=== PATIENT | male | born 1940 | race Caucasian/White ===

== ENCOUNTER 2020-07-25 11:17 | Inpatient (IN) ==
[2020-07-25] MEDS ORDERED: Ondansetron 4 MG/2 ML VIAL IVP PRN (15:19)
[2020-07-25] MEDS ORDERED: Naloxone 0.4 MG/ML INJ IVP PRN (15:19)
[2020-07-25] MEDS ORDERED: *HR* HYDROcodone/Acet 5/325 mg TABLET PO PRN (15:19)
[2020-07-25] MEDS ORDERED: MOMETASONE FUROATE APPL TP PRN (15:23)
[2020-07-25] MEDS ORDERED: Triamcinolone Acet 0.1% CRM 15 GM TUBE TP PRN (15:23)
[2020-07-25] MEDS ORDERED: Benzonatate 100 MG CAPSULE PO PRN (15:23)
[2020-07-25] MEDS: *HR* Rivaroxaban 10 MG TABLET PO SCH (17:34)
[2020-07-25] MEDS ORDERED: Nitroglycerin 0.4 MG TAB.SUBL SL PRN (18:16)
[2020-07-25] MEDS: polyethylene glycoL 3350 17 GM POWD.PACK PO PRN (22:36)
[2020-07-26] MEDS: Acetaminophen 325 MG TABLET PO PRN (03:07)
[2020-07-26 06:14] LABS: Hematocrit 39.6 % (37.5-50.1); Hemoglobin 13.9 g/dL (12.9-16.9); Mean Corpuscular HGB Conc 35.1 g/dL (31.6-35.5); Mean Corpuscular Hemoglobin 31.7 pg (28.0-33.3); Mean Corpuscular Volume 90.2 fL (83.0-100.0); Mean Platelet Volume 9.8 fL (9.4-12.4); Platelet Count 374 K/mcL (140-400); Red Blood Count 4.39 M/mcL (4.19-5.50); Red Cell Distribution Width 11.9 % (11.5-14.5); White Blood Count 8.7 K/mcL (4.3-11.1)
[2020-07-26 06:33] LABS: BUN/Creatinine Ratio 31 (6-26); Blood Urea Nitrogen 31 mg/dL (8-23); Calcium 8.6 mg/dL (8.6-10.3); Carbon Dioxide 22 mEq/L (23-29); Chloride 99 mEq/L (98-107); Glucose 102 mg/dL (70-105); Osmolality,Calculated 283 (280-300); Potassium 4.2 mEq/L (3.5-5.1); Sodium 133 mEq/L (136-145); eGFR For African Americans > 60 (> 60); eGFR For Non-African Americans > 60 (> 60)
[2020-07-26] MEDS: Ondansetron ODT 4 MG TAB.RAPDIS SL PRN (07:45)
[2020-07-26] MEDS: Isosorbide MONOnitrate (24 HR) 30 MG TAB.ER.24H PO SCH (07:45)
[2020-07-26] MEDS: Cholecalciferol (D-3) 1,000 UNIT (25MCG) TABLET PO SCH (07:45)
[2020-07-26] MEDS: Multivit/Ca/Min/Fe/FA 1 TAB TABLET PO SCH (07:46)
[2020-07-26] MEDS: polyethylene glycoL 3350 17 GM POWD.PACK PO PRN (07:46)
[2020-07-26] MEDS: Aspirin Enteric Coated 81 MG Tablet PO SCH (07:46)
[2020-07-26] MEDS: *HR* Rivaroxaban 10 MG TABLET PO SCH (15:22)
[2020-07-26] MEDS: *HR* LORazepam 0.5 MG TABLET PO PRN (16:38)
[2020-07-26] MEDS: Nystatin Cream 15 GM TUBE TP SCH ×2 (16:38→21:19)
[2020-07-27] MEDS: *HR* LORazepam 0.5 MG TABLET PO PRN (01:02)
[2020-07-27] MEDS: Acetaminophen 325 MG TABLET PO PRN (04:51)
[2020-07-27 06:31] LABS: Basophils # 0.1 K/mcL (0.0-0.2); Basophils % 0.7 %; Eosinophils # 0.1 K/mcL (0.0-0.6); Hematocrit 38.4 % (37.5-50.1); Hemoglobin 13.6 g/dL (12.9-16.9); Immature Granulocytes % 1.8 % (0-4); Lymphocytes # 0.9 K/mcL (0.6-4.6); Lymphocytes % 12.3 %; Mean Corpuscular HGB Conc 35.4 g/dL (31.6-35.5); Mean Corpuscular Volume 90.4 fL (83.0-100.0); Mean Platelet Volume 9.5 fL (9.4-12.4); Monocytes % 13.5 %; Neutrophils # 5.2 K/mcL (1.6-8.9); Platelet Count 322 K/mcL (140-400); Red Blood Count 4.25 M/mcL (4.19-5.50); Red Cell Distribution Width 12.1 % (11.5-14.5); Segmented Neutrophils % 70.7 %; White Blood Count 7.3 K/mcL (4.3-11.1)
[2020-07-27 06:49] LABS: BUN/Creatinine Ratio 24 (6-26); Blood Urea Nitrogen 21 mg/dL (8-23); Calcium 8.6 mg/dL (8.6-10.3); Carbon Dioxide 23 mEq/L (23-29); Chloride 99 mEq/L (98-107); Glucose 97 mg/dL (70-105); Osmolality,Calculated 275 (280-300); Potassium 4.6 mEq/L (3.5-5.1); Sodium 131 mEq/L (136-145); eGFR For African Americans > 60 (> 60); eGFR For Non-African Americans > 60 (> 60)
[2020-07-27] MEDS: Cholecalciferol (D-3) 1,000 UNIT (25MCG) TABLET PO SCH (07:46)
[2020-07-27] MEDS: Aspirin Enteric Coated 81 MG Tablet PO SCH (07:46)
[2020-07-27] MEDS: Isosorbide MONOnitrate (24 HR) 30 MG TAB.ER.24H PO SCH (07:46)
[2020-07-27] MEDS: Multivit/Ca/Min/Fe/FA 1 TAB TABLET PO SCH (07:46)
[2020-07-27] MEDS: Ondansetron ODT 4 MG TAB.RAPDIS SL PRN (07:47)
[2020-07-27] MEDS: Nystatin Cream 15 GM TUBE TP SCH (07:47)
[2020-07-27 14:47] VITALS: BP 109/64
== END 2020-07-27 16:07 | disposition other institution (70) | DRG 177 ==
LOC: INPPIK 15:42
PROVIDERS: ADMIT Family Medicine; ATTEND Family Medicine

== ENCOUNTER 2020-07-27 14:12 | Inpatient (IN) ==
[2020-07-27] MEDS ORDERED: MOMETASONE FUROATE TP PRN (14:41)
[2020-07-27] MEDS: *HR* Rivaroxaban 10 MG TABLET PO SCH (16:45)
[2020-07-28] MEDS: Acetaminophen 325 MG TABLET PO PRN ×3 (00:02→23:06)
[2020-07-28] MEDS ORDERED: Nitroglycerin 0.4 MG TAB.SUBL SL ONE (05:08)
[2020-07-28] MEDS: Nitroglycerin 0.4 MG TAB.SUBL SL PRN ×2 (05:09→14:19)
[2020-07-28] MEDS ORDERED: Nitroglycerin 0.4 MG TAB.SUBL SL PRN (08:52)
[2020-07-28] MEDS ORDERED: Isosorbide MONOnitrate (24 HR) 30 MG TAB.ER.24H PO SCH (09:00)
[2020-07-28] MEDS: Multivit/Ca/Min/Fe/FA 1 TAB TABLET PO SCH (09:06)
[2020-07-28] MEDS: Cholecalciferol (D-3) 1,000 UNIT (25MCG) TABLET PO SCH (09:07)
[2020-07-28] MEDS: Aspirin Enteric Coated 81 MG Tablet PO SCH (09:07)
[2020-07-28] MEDS: Nystatin Cream 15 GM TUBE TP SCH ×3 (14:09→20:25)
[2020-07-28] MEDS ORDERED: 0.9 % Sodium Chloride 250 ML IVC ONE (14:33)
[2020-07-28] MEDS ORDERED: GI Cocktail 40 ML EACH PO ONE (16:52)
[2020-07-28] MEDS: *HR* Rivaroxaban 10 MG TABLET PO SCH (18:09)
[2020-07-28] MEDS: polyethylene glycoL 3350 17 GM POWD.PACK PO PRN (23:07)
[2020-07-28] MEDS: Benzonatate 100 MG CAPSULE PO PRN (23:07)
[2020-07-29] MEDS: Cholecalciferol (D-3) 1,000 UNIT (25MCG) TABLET PO SCH (09:47)
[2020-07-29] MEDS: Isosorbide MONOnitrate (24 HR) 60 MG TAB.ER.24H PO SCH (09:47)
[2020-07-29] MEDS: Multivit/Ca/Min/Fe/FA 1 TAB TABLET PO SCH (09:47)
[2020-07-29] MEDS: Acetaminophen 325 MG TABLET PO PRN (09:47)
[2020-07-29] MEDS: Metoprolol XL (24 HR) Succ 25 MG TAB.ER.24H PO SCH (09:47)
[2020-07-29] MEDS: Aspirin Enteric Coated 81 MG Tablet PO SCH (09:47)
[2020-07-29] MEDS: Nystatin Cream 15 GM TUBE TP SCH ×3 (09:49→22:10)
[2020-07-29 10:06] LABS: Hematocrit 40.8 % (37.5-50.1); Hemoglobin 13.7 g/dL (12.9-16.9); Mean Corpuscular HGB Conc 33.6 g/dL (31.6-35.5); Mean Corpuscular Hemoglobin 30.9 pg (28.0-33.3); Mean Corpuscular Volume 92.1 fL (83.0-100.0); Mean Platelet Volume 9.9 fL (9.4-12.4); Platelet Count 268 K/mcL (140-400); Red Blood Count 4.43 M/mcL (4.19-5.50); Red Cell Distribution Width 12.1 % (11.5-14.5); White Blood Count 4.9 K/mcL (4.3-11.1)
[2020-07-29 10:30] LABS: BUN/Creatinine Ratio 20 (6-26); Blood Urea Nitrogen 15 mg/dL (8-23); Calcium 8.4 mg/dL (8.6-10.3); Carbon Dioxide 25 mEq/L (23-29); Chloride 100 mEq/L (98-107); Glucose 91 mg/dL (70-105); Osmolality,Calculated 280 (280-300); Potassium 4.2 mEq/L (3.5-5.1); Sodium 135 mEq/L (136-145); eGFR For African Americans > 60 (> 60); eGFR For Non-African Americans > 60 (> 60)
[2020-07-29] MEDS: *HR* Rivaroxaban 10 MG TABLET PO SCH (16:37)
[2020-07-30] MEDS: Nitroglycerin 0.4 MG TAB.SUBL SL PRN ×2 (09:11→09:35)
[2020-07-30] MEDS ORDERED: *HR* Metoprolol 5 MG/5 ML VIAL IVP ONE (09:31)
[2020-07-30] MEDS: *HR* LORazepam 0.5 MG TABLET PO PRN (09:32)
[2020-07-30] MEDS: Cholecalciferol (D-3) 1,000 UNIT (25MCG) TABLET PO SCH (10:17)
[2020-07-30] MEDS: Aspirin Enteric Coated 81 MG Tablet PO SCH (10:18)
[2020-07-30] MEDS: Metoprolol XL (24 HR) Succ 25 MG TAB.ER.24H PO SCH (10:18)
[2020-07-30] MEDS: Multivit/Ca/Min/Fe/FA 1 TAB TABLET PO SCH (10:18)
[2020-07-30] MEDS: Isosorbide MONOnitrate (24 HR) 60 MG TAB.ER.24H PO SCH (10:18)
[2020-07-30] MEDS: Nystatin Cream 15 GM TUBE TP SCH ×3 (10:20→21:39)
[2020-07-30] MEDS ORDERED: Metoprolol XL (24 HR) Succ 25 MG TAB.ER.24H PO ONE (10:25)
[2020-07-30] MEDS ORDERED: Metoprolol XL (24 HR) Succ 25 MG TAB.ER.24H PO SCH (10:30)
[2020-07-30] MEDS: *HR* Rivaroxaban 10 MG TABLET PO SCH (19:00)
[2020-07-30] MEDS: Acetaminophen 325 MG TABLET PO PRN (23:38)
[2020-07-31] MEDS: Metoprolol XL (24 HR) Succ 50 MG TAB.ER.24H PO SCH (10:02)
[2020-07-31] MEDS: Isosorbide MONOnitrate (24 HR) 60 MG TAB.ER.24H PO SCH (10:02)
[2020-07-31] MEDS: Multivit/Ca/Min/Fe/FA 1 TAB TABLET PO SCH (10:02)
[2020-07-31] MEDS: Aspirin Enteric Coated 81 MG Tablet PO SCH (10:02)
[2020-07-31] MEDS: Cholecalciferol (D-3) 1,000 UNIT (25MCG) TABLET PO SCH (10:02)
[2020-07-31] MEDS: Nystatin Cream 15 GM TUBE TP SCH ×3 (10:04→20:07)
[2020-07-31] MEDS: *HR* Rivaroxaban 10 MG TABLET PO SCH (18:09)
[2020-08-01] MEDS: Ondansetron ODT 4 MG TAB.RAPDIS SL PRN (06:59)
[2020-08-01] MEDS: Nystatin Cream 15 GM TUBE TP SCH ×3 (08:00→21:07)
[2020-08-01] MEDS: Cholecalciferol (D-3) 1,000 UNIT (25MCG) TABLET PO SCH (08:41)
[2020-08-01] MEDS: Multivit/Ca/Min/Fe/FA 1 TAB TABLET PO SCH (08:41)
[2020-08-01] MEDS: Isosorbide MONOnitrate (24 HR) 60 MG TAB.ER.24H PO SCH (08:41)
[2020-08-01] MEDS: Aspirin Enteric Coated 81 MG Tablet PO SCH (08:41)
[2020-08-01] MEDS: Metoprolol XL (24 HR) Succ 50 MG TAB.ER.24H PO SCH (08:41)
[2020-08-01] MEDS: *HR* Rivaroxaban 10 MG TABLET PO SCH (16:42)
[2020-08-02] MEDS: Benzonatate 100 MG CAPSULE PO PRN ×2 (02:59→23:17)
[2020-08-02] MEDS: Acetaminophen 325 MG TABLET PO PRN (05:33)
[2020-08-02] MEDS: Ondansetron ODT 4 MG TAB.RAPDIS SL PRN (05:36)
[2020-08-02] MEDS: Multivit/Ca/Min/Fe/FA 1 TAB TABLET PO SCH (08:26)
[2020-08-02] MEDS: Cholecalciferol (D-3) 1,000 UNIT (25MCG) TABLET PO SCH (08:26)
[2020-08-02] MEDS: Isosorbide MONOnitrate (24 HR) 60 MG TAB.ER.24H PO SCH (08:26)
[2020-08-02] MEDS: Metoprolol XL (24 HR) Succ 50 MG TAB.ER.24H PO SCH (08:26)
[2020-08-02] MEDS: Aspirin Enteric Coated 81 MG Tablet PO SCH (08:26)
[2020-08-02] MEDS: Nystatin Cream 15 GM TUBE TP SCH ×3 (08:27→21:19)
[2020-08-02] MEDS: *HR* Rivaroxaban 10 MG TABLET PO SCH (17:05)
[2020-08-03] MEDS: polyethylene glycoL 3350 17 GM POWD.PACK PO PRN (09:11)
[2020-08-03] MEDS: Ondansetron ODT 4 MG TAB.RAPDIS SL PRN (09:11)
[2020-08-03] MEDS: Aspirin Enteric Coated 81 MG Tablet PO SCH (09:12)
[2020-08-03] MEDS: Multivit/Ca/Min/Fe/FA 1 TAB TABLET PO SCH (09:12)
[2020-08-03] MEDS: Isosorbide MONOnitrate (24 HR) 60 MG TAB.ER.24H PO SCH (09:12)
[2020-08-03] MEDS: Cholecalciferol (D-3) 1,000 UNIT (25MCG) TABLET PO SCH (09:12)
[2020-08-03] MEDS: Nystatin Cream 15 GM TUBE TP SCH ×3 (09:13→19:50)
[2020-08-03] MEDS: Metoprolol XL (24 HR) Succ 50 MG TAB.ER.24H PO SCH (09:13)
[2020-08-03] MEDS: *HR* Rivaroxaban 10 MG TABLET PO SCH (16:19)
[2020-08-03] MEDS ORDERED: Bisacodyl 10 MG RECTAL SUPPOSITORY RC PRN (17:21)
[2020-08-03] MEDS: Benzonatate 100 MG CAPSULE PO PRN (23:42)
[2020-08-04] MEDS: Ondansetron ODT 4 MG TAB.RAPDIS SL PRN (05:08)
[2020-08-04] MEDS: Multivit/Ca/Min/Fe/FA 1 TAB TABLET PO SCH (07:54)
[2020-08-04] MEDS: Cholecalciferol (D-3) 1,000 UNIT (25MCG) TABLET PO SCH (07:54)
[2020-08-04] MEDS: Aspirin Enteric Coated 81 MG Tablet PO SCH (07:55)
[2020-08-04] MEDS: Nystatin Cream 15 GM TUBE TP SCH ×3 (07:55→20:16)
[2020-08-04] MEDS: Isosorbide MONOnitrate (24 HR) 60 MG TAB.ER.24H PO SCH (07:55)
[2020-08-04] MEDS: Metoprolol XL (24 HR) Succ 50 MG TAB.ER.24H PO SCH (07:55)
[2020-08-04] MEDS: *HR* Rivaroxaban 10 MG TABLET PO SCH (16:30)
[2020-08-04] MEDS: Benzonatate 100 MG CAPSULE PO PRN (22:50)
[2020-08-05 06:58] VITALS: BP 132/73
[2020-08-05] MEDS: Isosorbide MONOnitrate (24 HR) 60 MG TAB.ER.24H PO SCH (08:23)
[2020-08-05] MEDS: Aspirin Enteric Coated 81 MG Tablet PO SCH (08:23)
[2020-08-05] MEDS: Metoprolol XL (24 HR) Succ 50 MG TAB.ER.24H PO SCH (08:24)
[2020-08-05] MEDS: Multivit/Ca/Min/Fe/FA 1 TAB TABLET PO SCH (08:24)
[2020-08-05] MEDS: Cholecalciferol (D-3) 1,000 UNIT (25MCG) TABLET PO SCH (08:24)
[2020-08-05] MEDS: Nystatin Cream 15 GM TUBE TP SCH ×2 (08:25→15:52)
[2020-08-05] MEDS: *HR* LORazepam 0.5 MG TABLET PO PRN (10:11)
[2020-08-05] MEDS: Ondansetron ODT 4 MG TAB.RAPDIS SL PRN (10:12)
[2020-08-05] MEDS: polyethylene glycoL 3350 17 GM POWD.PACK PO PRN (10:12)
[2020-08-05] MEDS: Benzonatate 100 MG CAPSULE PO PRN (10:12)
[2020-08-05] MEDS: *HR* Rivaroxaban 10 MG TABLET PO SCH (15:53)
== END 2020-08-05 16:30 | disposition home health service (06) | DRG 946 ==
LOC: INPPIK 16:05
PROVIDERS: ADMIT Family Medicine; ATTEND Family Medicine

== ENCOUNTER 2020-11-22 12:34 | Inpatient (IN) ==
[2020-11-22] MEDS ORDERED: Nitroglycerin 0.4 MG TAB.SUBL SL PRN (21:35)
[2020-11-22] MEDS: Melatonin 3 MG TABLET PO PRN (22:55)
[2020-11-22] MEDS ORDERED: Ibuprofen 600 MG TABLET PO PRN (23:02)
[2020-11-23 07:14] LABS: Basophils % 0.6 %; Eosinophils # 0.3 K/mcL (0.0-0.6); Eosinophils % 5.6 %; Hematocrit 25.5 % (37.5-50.1); Hemoglobin 8.3 g/dL (12.9-16.9); Immature Granulocytes % 1.6 % (0-4); Lymphocytes # 1.1 K/mcL (0.6-4.6); Lymphocytes % 20.9 %; Mean Corpuscular HGB Conc 32.5 g/dL (31.6-35.5); Mean Corpuscular Hemoglobin 29.6 pg (28.0-33.3); Mean Corpuscular Volume 91.1 fL (83.0-100.0); Mean Platelet Volume 10.1 fL (9.4-12.4); Monocytes # 0.7 K/mcL (0.0-1.3); Monocytes % 13.5 %; Neutrophils # 2.9 K/mcL (1.6-8.9); Platelet Count 276 K/mcL (140-400); Red Cell Distribution Width 13.5 % (11.5-14.5); Segmented Neutrophils % 57.8 %
[2020-11-23 07:33] LABS: BUN/Creatinine Ratio 20 (6-26); Blood Urea Nitrogen 21 mg/dL (8-23); Calcium 8.5 mg/dL (8.6-10.3); Carbon Dioxide 26 mEq/L (23-29); Chloride 101 mEq/L (98-107); Glucose 118 mg/dL (70-105); Osmolality,Calculated 284 (280-300); Sodium 135 mEq/L (136-145); eGFR For African Americans > 60 (> 60); eGFR For Non-African Americans > 60 (> 60)
[2020-11-23] MEDS: Metoprolol XL (24 HR) Succ 50 MG TAB.ER.24H PO SCH (09:17)
[2020-11-23] MEDS: Cholecalciferol (D-3) 1,000 UNIT (25MCG) TABLET PO SCH (09:17)
[2020-11-23] MEDS: Isosorbide MONOnitrate (24 HR) 30 MG TAB.ER.24H PO SCH (09:17)
[2020-11-23] MEDS: *HR* Amiodarone 200 MG TABLET PO SCH (09:17)
[2020-11-23] MEDS: Aspirin Enteric Coated 81 MG Tablet PO SCH (09:17)
[2020-11-23] MEDS: polyethylene glycoL 3350 17 GM POWD.PACK PO PRN (09:23)
[2020-11-23] MEDS: *HR* Rivaroxaban 10 MG TABLET PO SCH (16:50)
[2020-11-23] MEDS: Melatonin 3 MG TABLET PO PRN (20:27)
[2020-11-23] MEDS: ALPRAZolam 0.5 MG TABLET PO PRN (23:01)
[2020-11-24] MEDS: Metoprolol XL (24 HR) Succ 50 MG TAB.ER.24H PO SCH (08:17)
[2020-11-24] MEDS: *HR* Amiodarone 200 MG TABLET PO SCH (08:17)
[2020-11-24] MEDS: Aspirin Enteric Coated 81 MG Tablet PO SCH (08:17)
[2020-11-24] MEDS: Cholecalciferol (D-3) 1,000 UNIT (25MCG) TABLET PO SCH (08:17)
[2020-11-24] MEDS: Isosorbide MONOnitrate (24 HR) 30 MG TAB.ER.24H PO SCH (08:17)
[2020-11-24] MEDS: *HR* Rivaroxaban 10 MG TABLET PO SCH (16:23)
[2020-11-24] MEDS: Melatonin 3 MG TABLET PO PRN (20:24)
[2020-11-24] MEDS: ALPRAZolam 0.5 MG TABLET PO PRN (22:28)
[2020-11-25] MEDS: Cholecalciferol (D-3) 1,000 UNIT (25MCG) TABLET PO SCH (08:36)
[2020-11-25] MEDS: Aspirin Enteric Coated 81 MG Tablet PO SCH (08:36)
[2020-11-25] MEDS: Metoprolol XL (24 HR) Succ 50 MG TAB.ER.24H PO SCH (08:36)
[2020-11-25] MEDS: *HR* Amiodarone 200 MG TABLET PO SCH (08:36)
[2020-11-25] MEDS: Isosorbide MONOnitrate (24 HR) 30 MG TAB.ER.24H PO SCH (08:36)
[2020-11-25] MEDS: *HR* Rivaroxaban 10 MG TABLET PO SCH (17:05)
[2020-11-25] MEDS: ALPRAZolam 0.5 MG TABLET PO PRN (22:05)
[2020-11-25] MEDS: Melatonin 3 MG TABLET PO PRN (22:06)
[2020-11-26] MEDS: Isosorbide MONOnitrate (24 HR) 30 MG TAB.ER.24H PO SCH (07:31)
[2020-11-26] MEDS: Metoprolol XL (24 HR) Succ 50 MG TAB.ER.24H PO SCH (07:31)
[2020-11-26] MEDS: Aspirin Enteric Coated 81 MG Tablet PO SCH (07:31)
[2020-11-26] MEDS: Cholecalciferol (D-3) 1,000 UNIT (25MCG) TABLET PO SCH (07:31)
[2020-11-26] MEDS: *HR* Amiodarone 200 MG TABLET PO SCH (07:31)
[2020-11-26] MEDS ORDERED: Docusate Oral Soln 100 MG/10 ML UDC PO PRN (16:15)
[2020-11-26] MEDS: *HR* Rivaroxaban 10 MG TABLET PO SCH (17:03)
[2020-11-26] MEDS: Melatonin 3 MG TABLET PO PRN (21:57)
[2020-11-26] MEDS: ALPRAZolam 0.5 MG TABLET PO PRN (21:57)
[2020-11-27] MEDS ORDERED: Nitroglycerin 0.2 MG PATCH.TD24 TD SCH (07:30)
[2020-11-27] MEDS: Cholecalciferol (D-3) 1,000 UNIT (25MCG) TABLET PO SCH (08:43)
[2020-11-27] MEDS: Aspirin Enteric Coated 81 MG Tablet PO SCH (08:43)
[2020-11-27] MEDS: *HR* Amiodarone 200 MG TABLET PO SCH (08:43)
[2020-11-27 08:57] LABS: Hematocrit 34.1 % (37.5-50.1); Hemoglobin 10.8 g/dL (12.9-16.9); Mean Corpuscular HGB Conc 31.7 g/dL (31.6-35.5); Mean Corpuscular Hemoglobin 29.8 pg (28.0-33.3); Mean Corpuscular Volume 93.9 fL (83.0-100.0); Mean Platelet Volume 9.5 fL (9.4-12.4); Platelet Count 416 K/mcL (140-400); Red Blood Count 3.63 M/mcL (4.19-5.50); Red Cell Distribution Width 14.4 % (11.5-14.5); White Blood Count 4.5 K/mcL (4.3-11.1)
[2020-11-27 09:10] LABS: BUN/Creatinine Ratio 14 (6-26); Blood Urea Nitrogen 16 mg/dL (8-23); Calcium 8.6 mg/dL (8.6-10.3); Carbon Dioxide 25 mEq/L (23-29); Chloride 105 mEq/L (98-107); Glucose 110 mg/dL (70-105); Osmolality,Calculated 288 (280-300); Potassium 4.1 mEq/L (3.5-5.1); Sodium 138 mEq/L (136-145); eGFR For African Americans > 60 (> 60); eGFR For Non-African Americans > 60 (> 60)
[2020-11-27] MEDS: Isosorbide MONOnitrate (24 HR) 30 MG TAB.ER.24H PO SCH (11:08)
[2020-11-27] MEDS: *HR* Rivaroxaban 10 MG TABLET PO SCH (16:39)
[2020-11-27] MEDS: ALPRAZolam 0.5 MG TABLET PO PRN (23:20)
[2020-11-27] MEDS: Melatonin 3 MG TABLET PO PRN (23:20)
[2020-11-28 07:18] VITALS: BP 133/75
[2020-11-28] MEDS: Aspirin Enteric Coated 81 MG Tablet PO SCH (10:06)
[2020-11-28] MEDS: Isosorbide MONOnitrate (24 HR) 30 MG TAB.ER.24H PO SCH (10:06)
[2020-11-28] MEDS: *HR* Amiodarone 200 MG TABLET PO SCH (10:06)
[2020-11-28] MEDS: Cholecalciferol (D-3) 1,000 UNIT (25MCG) TABLET PO SCH (10:06)
[2020-11-28] MEDS: ALPRAZolam 0.5 MG TABLET PO PRN (10:07)
[2020-11-28] MEDS: polyethylene glycoL 3350 17 GM POWD.PACK PO PRN (10:07)
== END 2020-11-28 15:09 | disposition home or self-care (01) | DRG 945 ==
LOC: INPPIK 20:21
PROVIDERS: ADMIT Family Medicine; ATTEND Family Medicine